=== PATIENT | male | born 1985 | race African-American/Black ===

== ENCOUNTER 2021-06-24 19:52 | Emergency (ER) | payer OTHER ==
[2021-06-24 20:03] VITALS: BP 133/84; PULSE 72; TEMP 97.9; BMI 37.1
== END 2021-06-24 22:58 | disposition home or self-care (01) ==
LOC: JERFT 19:52
DX: M25.562 Pain in left knee (principal)
CPT/HCPCS: 73562-TC-LT-FY; 93971-TC; 99284-25

== ENCOUNTER 2021-08-29 06:00 | Emergency (ER) | payer OTHER ==
[2021-08-29 06:35] VITALS: BP 133/81; PULSE 77; TEMP 98; BMI 37.1
[2021-08-29] MEDS ORDERED: KETOROLAC TROMETHAMINE 30 MG/1 ML VIAL IVPUSH ONE (07:09)
[2021-08-29] MEDS ORDERED: KETOROLAC TROMETHAMINE 15 MG/ML VIAL ONE (08:16)
[2021-08-29 08:55] LABS: BASO % 0.5 % (0-2.0); EOS % 7.2 % (0-4.5); HEMATOCRIT 43.7 % (35.4-49); HEMOGLOBIN 14.8 GM/dL (11.7-16.9); LYMPH % 25.1 % (8-40); MCH 29.8 pg (25.7-33.7); MCHC 33.8 g/dl (32.0-35.9); MEAN CELL VOLUME 88.1 fl (80-96); MEAN PLT VOLUME 8.3 fl (7.5-11.1); MONO % 7.4 % (3.8-10.2); NEUT % 59.8 % (42.8-82.8); PLATELET COUNT 311 10^3/uL (134-434); RBC 4.96 M/mm3 (4.00-5.60); RDW 14.5 % (11.9-15.9); WHITE BLOOD COUNT 7.6 K/mm3 (4.0-10.0)
[2021-08-29 09:14] LABS: CALCIUM 9.1 mg/dL (8.5-10.1)
[2021-08-29 09:15] LABS: ALBUMIN 3.6 g/dl (3.4-5.0); BLOOD UREA NITROGEN 11.6 mg/dL (7-18)
[2021-08-29 09:18] LABS: CREATININE 1.2 mg/dL (0.55-1.3)
[2021-08-29 09:19] LABS: BILIRUBIN,TOTAL 0.7 mg/dL (0.2-1); TOT PROT 7.2 g/dl (6.4-8.2)
== END 2021-08-29 10:20 | disposition home or self-care (01) ==
LOC: JERFT 06:00 → JER 06:00 → JERFT 10:20
PROC: 3E033GC Introduction of Other Therapeutic Substance into Peripheral Vein, Percutaneous Approach (ICD-10-PCS; principal; 2021-08-29)
DX: R10.13 Epigastric pain (principal); M67.813 Other specified disorders of tendon, right shoulder
CPT/HCPCS: 36415; 76700-TC; 80053; 83690; 85025; 99284-25

== ENCOUNTER 2022-01-05 07:08 | Emergency (ER) | payer OTHER ==
[2022-01-05 07:28] VITALS: BP 133/86; PULSE 82; RESP 19; TEMP 98; BMI 37.1
[2022-01-05] MEDS ORDERED: IBUPROFEN 600 MG TABLET (FP) PO ONE ×2 (07:42→07:45)
[2022-01-05] MEDS ORDERED: PENICILLIN V POTASSIUM 500 MG TABLET PO ONE (07:42)
[2022-01-05] MEDS ORDERED: AMOXICILLIN 500 MG CAPSULE (FP) ONE (07:46)
== END 2022-01-05 08:23 | disposition home or self-care (01) ==
LOC: JERFT 07:08 → JER 07:08 → JERFT 08:23
DX: K03.81 Cracked tooth (principal); K08.89 Other specified disorders of teeth and supporting structures
CPT/HCPCS: 99283-25